=== PATIENT | male | born 1975 | race Caucasian/White ===

== ENCOUNTER 2023-12-17 15:24 | Emergency (ER) | payer OTHER ==
[~2023-12-17] VITALS: Ht 175.3 cm; Wt 95.3 kg
[2023-12-17 15:57] VITALS: BP 111/88; PULSE 125; RESP 17; TEMP 97.8; O2SAT 97
[2023-12-17] MEDS: NACL 0.9% 1,000 ML IV ONE (17:05)
[2023-12-17] MEDS: KETOROLAC 30 MG/ML VIAL IVP ONE (17:09)
[2023-12-17 17:12] LABS: EOSINOPHILS % (AUTO) 0.4 % (0.0-4.0); HEMATOCRIT 48.4 % (36-52); HEMOGLOBIN 16.5 g/dL (12.0-18.0); LYMPHOCYTES # (AUTO) 1.1 K/uL (2.0-11.5); LYMPHOCYTES % (AUTO) 26.9 % (20.5-51.1); MEAN CORPUSCULAR HEMOGLOBIN 30 pg (27-31); MEAN CORPUSCULAR HGB CONC 34 g/dL (33-37); MEAN CORPUSCULAR VOLUME 88.1 fL (80-94); MONOCYTES # (AUTO) 0.6 K/uL (0.8-1.0); MONOCYTES % (AUTO) 15.3 % (1.7-9.3); NEUTROPHILS # (AUTO) 2.4 K/uL (1.8-7.7); NEUTROPHILS % (AUTO) 56.4 % (42.2-75.2); PLATELET COUNT (AUTO) 165 K/uL (140-450); RED BLOOD CELL COUNT(AUTO) 5.49 MIL/uL (4.20-6.10); RED CELL DISTRIBUTION WIDTH 13.5 % (11.6-13.7); WHITE BLOOD COUNT (AUTO) 4.2 K/uL (4.8-10.8)
[2023-12-17 17:31] LABS: CARBON DIOXIDE 24.9 mmol/L (21-32); CREATININE 1.1 mg/dL (0.6-1.3); POTASSIUM 3.9 mmol/L (3.5-5.1)
[2023-12-17 17:44] LABS: ALANINE AMINOTRANSFERASE 85 U/L (12-78); ALBUMIN 3.6 g/dL (3.4-5.0); ALCOHOL, BLOOD < 3 mg/dL (<10); ALKALINE PHOSPHATASE 73 U/L (50-136); ASPARTATE AMINOTRANSFERASE 17 U/L (15-37); LIPASE 31 U/L (16-77); TOTAL PROTEIN, SERUM 7.1 g/dL (6.4-8.2)
[2023-12-17 17:45] LABS: TOTAL BILIRUBIN 0.4 mg/dL (0.0-1.0)
[2023-12-17 18:22] LABS: FLU A ANTIGEN negative (NEGATIVE); FLU B ANTIGEN NEGATIVE (NEGATIVE)
[2023-12-17 18:28] VITALS: BP 132/92; PULSE 68; RESP 17; TEMP 98.2; O2SAT 96
== END 2023-12-17 18:38 | disposition home or self-care (01) ==
LOC: MED 15:24
DX: E86.0 Dehydration (principal); R10.30 Lower abdominal pain, unspecified; R53.1 Weakness; R10.12 Left upper quadrant pain; Z20.822 Contact with and (suspected) exposure to COVID-19
CPT/HCPCS: 36415; 71045; 80048; 80076; 83690; 85025; 87426; 87804; 96361; 96374; 99284; G0482; J1885; J7030; Q0092